=== PATIENT | male | born 1955 | race American Indian/Alaskan Native ===

== ENCOUNTER 2016-12-29 08:37 | Outpatient (CLI) | payer MEDICAID ==
[2016-12-29 09:44] LABS: Blood Urea Nitrogen 12 mg/dL (9-20)
--- NOTE | 2016-12-29 12:11 | Cat Scan Report ---
CT of the abdomen with IV and oral contrast. History: Gastric cancer. Findings: Comparison is made to the previous study on October 28, 2014. There is diffuse hypodensity of the liver parenchyma with no focal abnormalities. This is unchanged. The spleen and pancreas are unremarkable and unchanged. A stable right renal cyst is noted. The left kidney is unremarkable. Postoperative changes of the stomach appear similar to the previous study. The stomach is partially distended with fluid. There is questionable mural thickening involving the fundus medially and posteriorly No local adenopathy is seen. Orthopedic hardware is again noted in the right iliac bone. Impression: Equivocal evidence of gastric wall thickening in the fundus. Given the patient's history, endoscopic correlation is recommended. 2. Stable hepatic steatosis. 3. Stable right renal cyst.
== END 2016-12-29 08:38 | disposition home or self-care (01) ==
LOC: CT 08:37
DX: C16.2 Malignant neoplasm of body of stomach (principal); N28.1 Cyst of kidney, acquired; K31.89 Other diseases of stomach and duodenum; K76.0 Fatty (change of) liver, not elsewhere classified
CPT/HCPCS: 36415; 74160; 82565; 84520; Q9967